=== PATIENT | female | born 1955 | race Caucasian/White ===

== ENCOUNTER 2017-01-24 11:36 | Emergency (ER) | payer MEDICAID ==
[~2017-01-24] VITALS: Ht 160 cm; Wt 90.9 kg
[~2017-01-24 11:36] MED LIST: INSLAN SQ; INSU100I15 SQ; OMEP40CA12 PO
[2017-01-24 11:39] VITALS: BP 117/67
[2017-01-24] MEDS ORDERED: ATOR20TA86 PO (11:52)
[2017-01-24] MEDS ORDERED: ALPR0.255 PO (11:52)
[2017-01-24] MEDS ORDERED: METF500T4 PO (11:52)
[2017-01-24] MEDS ORDERED: BENZ-26 PO (11:52)
[2017-01-24] MEDS ORDERED: IBUP-1547 PO (11:52)
[2017-01-24] MEDS ORDERED: OMEP20 PO (11:52)
[2017-01-24] MEDS ORDERED: ALOG25TA2 PO (11:52)
[2017-01-24] MEDS ORDERED: NAPR-58 PO (11:52)
[2017-01-24] MEDS ORDERED: METO-296 PO (11:52)
[2017-01-24] MEDS ORDERED: SULF500P17 MC (11:52)
[2017-01-24 11:53] LABS: GLUCOSE,POINT OF CARE 140 MG/DL (70-110)
== END 2017-01-24 14:10 | disposition home or self-care (01) ==
LOC: EMS 11:37
DX: S93.402A Sprain of unspecified ligament of left ankle, initial encounter (principal); K21.9 Gastro-esophageal reflux disease without esophagitis; E11.9 Type 2 diabetes mellitus without complications; Z79.4 Long term (current) use of insulin; X58.XXXA Exposure to other specified factors, initial encounter; Y93.89 Activity, other specified; Y92.89 Other specified places as the place of occurrence of the external cause; Y99.8 Other external cause status
CPT/HCPCS: 82962; 99284